=== PATIENT | male | born 1950 | race Caucasian/White ===

== ENCOUNTER 2019-02-05 09:39 | Day surgery (SDC) ==
[2019-02-05] MEDS ORDERED: LIDOCAINE 1% 20 ML MDV ID STA (10:52)
[2019-02-05] MEDS ORDERED: DIPRIVAN 20 ML VIAL IVP ONE (11:50)
[2019-02-05] MEDS ORDERED: VERSED ONE (11:50)
[2019-02-05 13:09] VITALS: BP 123/69; TEMP 98.4
--- NOTE | 2019-02-05 13:58 | OP ---
INDICATIONS FOR PROCEDURE: 68-year-old gentleman presents for colonoscopy and endoscopy evaluation of an abnormal CT scan. He has been losing weight this past year. Over the last six weeks he has been having left lower quadrant discomfort. CT scan showed some thickening in his stomach but also showed mass- like features in the sigmoid colon. MEDICATIONS: SEE ANESTHESIA NOTES. PROCEDURE: 1. ENDOSCOPY. 2. COLONOSCOPY TO THE SIGMOID, SNARE POLYPECTOMY, BIOPSY. REPORT: The risks, benefits, alternatives and limitations were discussed in detail with the patient. Informed consent was obtained. After adequate sedation was achieved, the video endoscope was introduced into the posterior pharynx and esophagus under direct vision. I easily advanced this down to the second portion of duodenum. I then slowly withdrew. The duodenal mucosa appeared unremarkable as did the duodenal bulb. The antrum and body were relatively unremarkable. The scope was retroflexed to look at the cardia and fundus which was relatively unremarkable. The scope was anteflexed and withdrawn through the esophagus which was unremarkable. The patient tolerated this procedure well with stable vital signs and pulse oximetry throughout. The patient's bed was turned. Digital rectal exam revealed good tone, no masses. The colonoscope was introduced into the rectum and was advanced under direct visual guidance. Unfortunately in the sigmoid area I encountered a large mass lesion. This was nearly obstructing the lumen, I could not advance the scope beyond this mass lesion. It was roughly at 25 cm in the external anus. It had a classic malignant appearance. I biopsied it multiple times for histological review. I then withdrew the scope in a circumferential manner examining the mucosa quite carefully. I looked on the proximal and distal side of folds and flexures as best as possible and was able to retroflex the scope in the rectum to increase visualization. In the mid rectum there was a flat 14 mm sessile polyp. I removed this by piecemeal technique using a Hexagonal snare. All of the polyp was retrieved. On retroflex view of the anal canal I could see in the distal rectum a 9 or 10 mm raised polyp, I removed by snare technique. Then scattered throughout the rectum were four diminutive polyps about 4 to 5 mm in size and these were removed and destroyed using a snare. The flat polyp was labeled mid rectum and the semi raised polyp was labeled distal rectum. The patient also had hemorrhoids on retroflex view of the anal canal. No other abnormalities were noted. The prep was adequate. The patient tolerated the procedure well with stable vital signs and pulse oximetry throughout. IMPRESSION: 1. Normal upper endoscopy. 2. Nearly complete obstructing colon mass in the mid sigmoid area consistent with colon cancer. 3. The mass would not allow the scope to pass beyond. 4. Six (6) polyps removed from the rectum. RECOMMENDATIONS: 1. Await pathology results. 2. Referral to general surgery for first available appointment. 3. Low roughage diet. 4. Colonoscopy one year or sooner. 5. Office visit with GI as needed. OF NOTE: I did speak to the patient and his at length about the findings. They had a good understanding. We are going to refer him to [facility]. CC: DR. JC CC: [facility] [address], [address], [facility] [address] [place] [address] [facility]
== END 2019-02-05 13:22 | disposition home or self-care (01) ==
LOC: SURG 09:39
PROVIDERS: ATTEND Internal Medicine Gastroenterology
DX: R93.5 Abnormal findings on diagnostic imaging of other abdominal regions, including retroperitoneum (principal); R10.32 Left lower quadrant pain; R10.12 Left upper quadrant pain; R63.4 Abnormal weight loss; R19.4 Change in bowel habit; D12.7 Benign neoplasm of rectosigmoid junction; D12.4 Benign neoplasm of descending colon; K63.9 Disease of intestine, unspecified; C18.7 Malignant neoplasm of sigmoid colon